=== PATIENT | female | born 1995 | race Caucasian/White ===

== ENCOUNTER 2018-05-17 17:51 | Emergency (ER) | payer OTHER ==
[2018-05-17] MEDS: ONDANSETRON 4 MG ORAL DISINTEGRATING TAB (Q0162 PER 1MG) PO (20:00)
[2018-05-17] MEDS: ACETAMINOPHEN TAB 650MG DOSE (2X325MG) PO (20:00)
[2018-05-17 21:07] LABS: KETONE, URINE AUTO RFX NEGATIVE (NEGATIVE); RBC, URINE AUTO RFX 5 /HPF (0-3); SPECIFIC GRAVITY UR AUTO RFX 1.015 (1.002-1.035); SQUAM EPITHELIAL CELL UR AURFX 9 /HPF (0-6); TRANSITIONAL EPITHELIAL AU RFX <1 /HPF
[2018-05-17 21:08] LABS: LEUKOCYTE ESTERASE UR AUTO RFX 3+ (NEGATIVE); NITRITE, URINE AUTO RFX POSITIVE (NEGATIVE); WBC, URINE AUTO RFX 39 /HPF (0-3)
[2018-05-17] MEDS: NITROFURANTOIN (MACROBID) 100 MG CAP PO (22:30)
== END 2018-05-17 22:37 | disposition home or self-care (01) ==
LOC: M ED 17:51
DX: N39.0 Urinary tract infection, site not specified (principal)
CPT/HCPCS: 76811

== ENCOUNTER 2018-08-23 13:57 | Outpatient (CLI) | payer OTHER ==
[~2018-08-23] VITALS: Ht 160 cm; Wt 64.0 kg
[~2018-08-23 13:57] MED LIST: MACR100C43 PO; otc prenatal
[2018-08-23 14:10] VITALS: BP 123/73
[2018-08-23 14:39] VITALS: BP 126/75
[2018-08-23 15:29] VITALS: BP 126/77
== END 2018-08-23 15:38 ==
LOC: M LDO 13:57
PROVIDERS: ATTEND Obstetrics & Gynecology
DX: O47.9 False labor, unspecified (principal); O99.283 Endocrine, nutritional and metabolic diseases complicating pregnancy, third trimester; E86.0 Dehydration; Z3A.31 31 weeks gestation of pregnancy
CPT/HCPCS: 59025; 87086; G0378; G0463

== ENCOUNTER 2018-09-15 07:09 | Outpatient (CLI) | payer OTHER ==
[~2018-09-15] VITALS: Ht 160 cm; Wt 65.3 kg
[2018-09-15 07:38] VITALS: BP 127/79
[2018-09-15 09:56] VITALS: BP 126/77
== END 2018-09-15 10:06 | disposition home or self-care (01) ==
LOC: M LDO 07:09
PROVIDERS: ATTEND Obstetrics & Gynecology
DX: O47.9 False labor, unspecified (principal); Z3A.35 35 weeks gestation of pregnancy
CPT/HCPCS: 59025; G0378; G0463

== ENCOUNTER 2018-10-14 08:17 | Outpatient (CLI) | payer OTHER ==
[~2018-10-14] VITALS: Ht 160 cm; Wt 65.7 kg
[2018-10-14 08:28] VITALS: BP 121/82
[2018-10-14 08:55] VITALS: BP 118/81
[2018-10-14 09:51] VITALS: BP 116/83
== END 2018-10-14 10:06 | disposition home or self-care (01) ==
LOC: M LDO 08:17
PROVIDERS: ATTEND Obstetrics & Gynecology
DX: O21.8 Other vomiting complicating pregnancy (principal); O47.1 False labor at or after 37 completed weeks of gestation; Z3A.39 39 weeks gestation of pregnancy
CPT/HCPCS: 59025; G0378; G0463

== ENCOUNTER 2018-10-23 00:48 | Outpatient (CLI) | payer OTHER ==
[~2018-10-23] VITALS: Ht 160 cm; Wt 66.3 kg
[2018-10-23 01:05] VITALS: BP 121/74
--- NOTE | 2018-10-23 09:53 | HPE ---
DATE OF ADMISSION: 10/23/2018 23-year-old 1, para 0, last menstrual period (LMP) 12/20/2017, but it was uncertain, estimated date of confinement (EDC) by ultrasound at 7 weeks 1 day, 10/20/2018 at 40 and 3 with contractions. No loss of fluid or vaginal bleeding. 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 Labs are O positive, HIV negative, RPR negative, rubella immune. Varicella immune. Urine negative. Gonorrhea and chlamydia negative. 1-hour glucose 109. Group B Streptococcus (GBS) negative. Urine is 1.020, pH 5, 250 blood, trace leukocytes. Temperature is 98.8, pulse 90, respirations 18, and blood pressure 121/74. On examination, no distress. Symphysis fundus height is 40, vertex. Four quadrant bowel sounds. 100% percent effaced, fingertip tight, posterior -3 station. No vaginal loss or bleeding. Category 1 strip. The rest examination unremarkable. Normocephalic, atraumatic. Neck: Full range of motion. Pupils equal and reactive to light. Distal pulses symmetric. No evidence of deep venous thrombosis (DVT), pulmonary embolus (PE), or superficial phlebitis. Chest is clear bilateral bases. No wheezes or rhonchi. No costovertebral angle (CVA) tenderness. No rashes, lesions, or pruritus. No arthralgia, myalgia. No complaint of joint pain. No cough, wheezes, or shortness of breath. Her gynecological history unremarkable. Past medical and surgical noncontributory. Family history is negative. She does not smoke, drink, abuse drugs. No domestic violence, has good support system. to a soldier. In summary, we have a term +3 in very early labor, fingertip, 100% effaced. Precautions were given. The patient was discharged undelivered, will probably return today in active labor.
== END 2018-10-23 03:05 | disposition home or self-care (01) ==
LOC: M LDO 00:48
PROVIDERS: ATTEND Obstetrics & Gynecology
DX: O47.1 False labor at or after 37 completed weeks of gestation (principal); Z3A.40 40 weeks gestation of pregnancy
CPT/HCPCS: 59025; G0378; G0463

== ENCOUNTER 2018-10-23 16:56 | Outpatient (CLI) | payer OTHER ==
[~2018-10-23] VITALS: Ht 160 cm; Wt 66.0 kg
[2018-10-23 17:49] VITALS: BP 142/96
[2018-10-23 17:51] VITALS: BP 133/90
== END 2018-10-23 18:20 | disposition home or self-care (01) ==
LOC: M LDO 16:56
PROVIDERS: ATTEND Obstetrics & Gynecology
DX: O47.1 False labor at or after 37 completed weeks of gestation (principal); Z3A.40 40 weeks gestation of pregnancy
CPT/HCPCS: 59025; G0378

== ENCOUNTER 2018-10-23 23:03 | Inpatient (IN) | payer OTHER ==
[~2018-10-23] VITALS: Ht 160 cm; Wt 66.3 kg
[2018-10-23 23:16] VITALS: BP 125/85
[2018-10-23] MEDS ORDERED: LACTATED RINGER'S 1000 ML IV STA (23:36)
--- NOTE | 2018-10-23 23:44 | HPEPDOC ---
Obstetrical History & Physical General Date of Admission [id number] History of Present Illness 22 y/o at 40+3 with painful reg ctx's, worsening since FT exam earlier today. Preg uncomplicated other than remote h/o melanoma from scalp, has an ONC referral but has not seen them yet. All this in 2011. 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 Past Medical History Medical History scoliosis, melanoma 2012, alopecia Surgical History: Tonsilectomy, [place] teeth, Other (vocal cord surgery 2018- polyp removal) Family History Significant Family History: No pertinent family hx Social History Marital Status: Family situation: Spouse/partner home Psychosocial History: No pertinent psych hx * Smoker: non-smoker Alcohol: Denies Drugs: denies Abuse Violence Screening Have you been hit/kicked/slapp: No Have you been sexually assault: No Imunizations Tdap status: current Influenza Status: current Allergies Coded Allergies: No Known Allergies (Unverified , 05/17/18) Medications Miscellaneous Medications [otc ] Physical Examination Physical Examination GENERAL: Alert and oriented times three. ABDOMEN: Gravid and non-tender to touch. FETUS: Is vertex (VTX) by sterile vaginal examination (SVE), 4/90/0/vtx well applied EXTREMITIES: No edema. Vital Signs/I&O Vital Signs Date Time Temp Pulse Resp B/P (MAP) Pulse Ox O2 Delivery O2 Flow Rate FiO2 10/23/ 23:16 98.4 99 18 125/85 (98) Laboratory Data Urine Culture: No Growth Pertinent Laboratoy Data Blood Type: O+ RBC Antibody Screen: Negative HIV: Negative Hepatitis B: Negative Hepatitis C: Unknown Rapid Plasma Reagin: Nonreactive Rubella: Immune Varicella: Immune Chlamydia/Gonorrhea: Negative Group B Streptococcus: Negative Quad Screen Test: Declined Cystic Fibrosis: Negative Glucose Tolerance Test: 109 Anatomy Ultrasound Placenta Location: Posterior Normal Anatomy: Yes Placenta Previa: No Assessment Variability: Moderate Accelerations: Positive Decelerations: None Tocometer Contractions: Yes Frequency: regular Duration: greater than 60 seconds Strength: palpated as moderate Assessment/Plan Assessment active labor Plan Admit and orient. Black [place] and consent. Diet: clrs Group B Streptococcus (GBS) neg Labs and intravenous (IV) per unit protocol. Counseled on Pitocin and induction of labor (IOL). Lactated Ringers (LR): Bolus 1000 mL prior to epidural, then at 125 mL/hr. Anticipate normal spontaneous delivery () C-S as appropriate. Sessions MD SESSIONS,KACI Jordan MD Oct 23, 2018 23:44
[2018-10-23 23:57] LABS: HEMATOCRIT 34.3 % (36.0-47.0); HEMOGLOBIN 11.1 g/dl (12.0-15.5); MEAN CORPUSCULAR HEMOGLOBIN 26.2 pg (27.0-33.0); MEAN CORPUSCULAR HGB CONC 32.4 g/dl (32.0-36.5); MEAN CORPUSCULAR VOLUME 81.1 fl (80.0-96.0); PLATELET COUNT, AUTOMATED 324 10^3/uL (150-450); RED BLOOD COUNT 4.23 10^6/uL (4.00-5.40); WHITE BLOOD COUNT 15.4 10^3/uL (4.0-10.0)
[2018-10-24] VITALS (22 sets, daily range): BP systolic 96–154; BP diastolic 51–92
[2018-10-24] MEDS ORDERED: FENTANYL 2MCG/ML ROPIVACAINE 0.2% IN 0.9% NACL 100ML IVBAG As Ordered ONE (00:21)
[2018-10-24] MEDS ORDERED: EPIDURAL COMMENT XX SCH (00:45)
[2018-10-24] MEDS ORDERED: ONDANSETRON 4MG/2ML VIAL (J2405) IV PRN (00:45)
[2018-10-24] MEDS ORDERED: NALOXONE INJ 0.4 MG/1 ML VIAL (J2310) IV PRN (00:45)
[2018-10-24] MEDS ORDERED: ePHEDrine SULFATE 25 MG/5 ML(5MG/ML) SYRINGE IV PRN (00:45)
[2018-10-24] MEDS ORDERED: EPIDURAL/PCA KEYS XX PRN (00:45)
[2018-10-24] MEDS ORDERED: REFRIGERATOR IV KEYS XX PRN (00:45)
[2018-10-24] MEDS ORDERED: diphenhydrAMINE INJ 50MG/ML VIAL (J1200) IV PRN (00:45)
[2018-10-24] MEDS ORDERED: FENTANYL/ROPIVACAINE/NACL BAG 100 ML EPIDURAL SCH (00:45)
[2018-10-24] MEDS ORDERED: LACTATED RINGER'S 1000 ML IV PRN (00:45)
[2018-10-24] MEDS: LR 1,000 ML IV SCH ×2 (01:08→04:37)
--- NOTE | 2018-10-24 03:27 | IPNPDOC ---
Text Note Date of Service The patient was seen on 10/24/18. NOTE FHT Cat 2 with mod kirsty, a few late decels fixed just now with pos change and O2 Cx 6/100/0, SROM with cx check, nonpart light [facility] noted Doing OK, plan on rechceck in 2-3 hrs, sooner prn. Sessions VS,Cherry, I+O VSCherry I+O Laboratory Tests 10/23/18 23:47 Red Blood Count 4.23, Mean Corpuscular Volume 81.1, Mean Corpuscular Hemoglobin 26.2 L, Mean Corpuscular Hemoglobin Concent 32.4, Red Cell Distribution Width 13.4 Vital Signs Date Time Temp Pulse Resp B/P (MAP) Pulse Ox O2 Delivery O2 Flow Rate FiO2 10/24/18 01:25 96 18 105/60 (75) 10/23/18 23:16 98.4 I&O- Last 24 Hours up to 6 AM 10/24/18 05:59 Intake Total 980 ml Balance 980 ml SESSIONS,KACI Jordan MD Oct 24, 2018 03:27
[2018-10-24] MEDS ORDERED: OXYTOCIN 30 UNITS IN 0.9% NaCl 500ML IV BAG (J2590) As Ordered ONE (07:02)
[2018-10-24] MEDS: DOCUSATE SODIUM 100 MG CAP PO SCH ×2 (09:00→21:42)
[2018-10-24] MEDS ORDERED: OXYTOCIN DRIP 30 UNITS in APPROPRIATE DILUENT 1 EA IV SCH (12:02)
--- NOTE | 2018-10-24 12:02 | DNPDOC ---
[facility] Delivery Note Delivery Note DATE OF DELIVERY: [id number] PREDELIVERY DIAGNOSIS: 40 4/7 weeks' gestation and labor. POST DELIVERY DIAGNOSIS: Delivered. PROCEDURE: Spontaneous vaginal delivery [employer]SEMBL[employer] HEAD: Dr. Quarles ANESTHESIA: epidural ESTIMATED BLOOD LOSS: 200 mL. FINDINGS: 7 pound 1 ounce male , Score 7/9 DELIVERY SUMMARY: Very busy floor, kept updated by the RN team. FHT reassuring throughout, some late and variable decels with pushing however mod kirsty persistent throughout. Known thin mec with SROM and check at 0320. Steady progression throughout the morning. Pushed now for ~ 2 hrs with elongated and thick perineal body, small external vagina. After consent obtained, ML epis cut and infant immediately delivered with no delay of the vtx or ant/post shoulders. Vigorous infant to abd. Cord C/C by FOB. Cord blood. Placenta intact, will be sent to pathology due to h/o melanoma per patient. Fundus firm with massage and pitocin at 999. No extension of the epis expect for the skin which continues down to just above the anal verge. Sphincter intact, confirmed by re ctal exam, equivalent of a second degree. Closed with 3-0 vicryl in standard fashion. Good cosmesis/hemostasis. Sessions MD QUARLES,KACI Jordan MD Oct 24, 2018 12:02
[2018-10-24] MEDS ORDERED: RHOGAM 300 MCG (1500 IU) INJ (J2790) IM SCH (12:15)
[2018-10-24] MEDS ORDERED: DIBUCAINE 1% OINTMENT 30GM TOP PRN (12:15)
[2018-10-24] MEDS ORDERED: MEASLES,MUMPS,RUBELLA VACCINE INJ (MMR-II) (90707) SC SCH (12:15)
[2018-10-24] MEDS ORDERED: METOCLOPRAMIDE INJ 10MG/2ML VIAL (J2765) IV PRN (12:15)
[2018-10-24] MEDS ORDERED: ACETAMINOPHEN TAB 650MG DOSE (2X325MG) PO PRN (12:15)
[2018-10-24] MEDS: IBUPROFEN 800 MG TAB PO PRN (16:35)
[2018-10-24] MEDS: PRENATAL VITAMINS CHEWABLE TABLET PO SCH (16:35)
[2018-10-25 06:33] VITALS: BP 117/84
--- NOTE | 2018-10-25 08:03 | IPNPDOC ---
Text Note Date of Service The patient was seen on 10/25/18. NOTE PPD1 States feeling well, pain controlled with prescribed meds. Baby bonding and feeding well. No heavy VB. Lochia slowing. Ambulatory. Tolerating PO without issues. Voiding spont. VSSAF NAD A&O RRR CTAB LE no C/C/E Ut at U-2, firm a/p: Doing well. Cont routine care. D/C tomorrow likely. Sessions VSCherry, I+O VSCherry I+O Vital Signs Date Time Temp Pulse Resp B/P (MAP) Pulse Ox O2 Delivery O2 Flow Rate FiO2 10/25/18 06:33 97.3 91 18 117/84 (95) I&O- Last 24 Hours up to 6 AM 10/25/18 05:59 Intake Total 1990.3 ml Output Total 1875 ml Balance 115.3 ml KACI QUARLES MD Oct 25, 2018 08:03
[2018-10-25] MEDS: DOCUSATE SODIUM 100 MG CAP PO SCH ×2 (09:36→20:00)
[2018-10-25] MEDS: PRENATAL VITAMINS CHEWABLE TABLET PO SCH (09:36)
[2018-10-25] MEDS: IBUPROFEN 800 MG TAB PO PRN ×2 (09:37→18:15)
[2018-10-25 18:00] VITALS: BP 126/78
[2018-10-26 06:17] VITALS: BP 121/71
--- NOTE | 2018-10-26 07:36 | IPNPDOC ---
Progress Note Date of Service: Oct 26, 2018 Day#: 2 Progress Note PPD 2 SUBJECT: Elena is a 23yo [id number] s/p uncomplicated at 40w4d on 10/24 after presenting in active labor, doing well day # 2. She has been ambulating, voiding spontaneously without issue and tolerating regular diet. Breast feeding without issue. Reports lochia is like a normal period. No f/c/n/v/CP/SOB. OBJECTIVE: VITAL SIGNS: Within normal limits, afebrile. Alert and oriented times three. Abdomen: Fundus firm at U-2. Soft, NTTP. Extremities: no pain with palpation of calves ASSESSMENT: Elena is a 23yo [id number] s/p uncomplicated at 40w4d on 10/24 after presenting in active labor, doing well day # 2. Vitals within normal limits, afebrile, hemodynamically stable with no evidence of infection. PLAN: 1. Discharge to home today. 2. Tylenol and Motrin for pain. 3. Encourage breast feeding and ambulation. 4. Minipill for contraception 5. Routine PP visit in 6 weeks in clinic. 6. Discussed return precautions at length. Dr. Ninoska Dallas MD VS, I&O, 24H, Fishbone Vital Signs/I&O Vital Signs Date Time Temp Pulse Resp B/P (MAP) Pulse Ox O2 Delivery O2 Flow Rate FiO2 10/26/18 06:17 97.4 93 15 121/71 (88) Ninoska Dallas MD Oct 26, 2018 07:36
[2018-10-26] MEDS: IBUPROFEN 800 MG TAB PO PRN (08:25)
[2018-10-26] MEDS: PRENATAL VITAMINS CHEWABLE TABLET PO SCH (08:26)
[2018-10-26] MEDS: DOCUSATE SODIUM 100 MG CAP PO SCH (08:26)
[2018-10-26] MEDS ORDERED: MAPA500T2 PO (10:43)
[2018-10-26] MEDS ORDERED: IBUP-1114 PO (10:43)
== END 2018-10-26 11:50 | disposition home or self-care (01) | DRG 807 ==
LOC: M LDO 23:03 → M LDI 23:38 → M OBS 10-24 14:56
PROVIDERS: ADMIT Obstetrics & Gynecology; ATTEND Obstetrics & Gynecology
PROC: 10E0XZZ Delivery of Products of Conception, External Approach (ICD-10-PCS; principal; 2018-10-24)
PROC: 0KQM0ZZ Repair Perineum Muscle, Open Approach (ICD-10-PCS; 2018-10-24)
PROC: 0W8NXZZ Division of Female Perineum, External Approach (ICD-10-PCS; 2018-10-24)
DX: O48.0 Post-term pregnancy (principal); Z37.0 Single live birth; Z3A.40 40 weeks gestation of pregnancy; O77.0 Labor and delivery complicated by meconium in amniotic fluid; O70.1 Second degree perineal laceration during delivery; Z85.820 Personal history of malignant melanoma of skin

== ENCOUNTER → 2021-01-01 | Outpatient (CLI) | payer OTHER ==
[~2021-01-01] MED LIST changes: +IBUP-1114 PO; +MAPA500T2 PO
--- NOTE | 2021-01-01 12:04 | REP ---
INDICATION: VAGINAL BLEEDING 14 WEEKS. COMPARISON: None. TECHNIQUE: Real-time sonographic evaluation of the gravid uterus performed. FINDINGS: Estimated gestational age is14 weeks 4 days, EDC 06/28/2021. Today's measurements indicate appropriate growth. Presentation: Transverse Placenta anterior, grade 0, without evidence of placenta previa or abruption. heart rate is recorded at 157 beats per minute. Amniotic fluid is subjectively normal. Closed cervical length is measured at 3.3 cm. Biometry chart: BPD: 29 mm, 15 weeks 2 days, 76th percentile. HC: 109 mm, 15 weeks 2 days, 74th percentile AC: 83 mm, 14 weeks 4 days, 51st percentile Femur length: 16 mm, 14 weeks 4 days, 49th percentile HC to AC ratio: 1.32, normal range 1.11-1.30. Estimated weight: 104g, 41st percentile. anatomy: Cranium, choroid plexus, stomach and three-vessel cord are visualized and are grossly unremarkable. IMPRESSION: Viable single intrauterine gestation as above. <Electronically signed by Ravinder Joya > 01/01/21 1200
== END ==
LOC: M RAD 11:04
PROVIDERS: ATTEND Registered Nurse Maternal Newborn
DX: O20.8 Other hemorrhage in early pregnancy (principal); Z3A.14 14 weeks gestation of pregnancy

== ENCOUNTER → 2021-06-06 | Outpatient (CLI) | payer OTHER | LOC: M CARPUL 13:22 | PROVIDERS: ATTEND Obstetrics & Gynecology | DX: R01.1 Cardiac murmur, unspecified (principal) ==